=== PATIENT | female | born 1960 | race Caucasian/White ===

== ENCOUNTER 2020-12-16 09:09 | Emergency (ER) | payer OTHER, SELFPAY ==
--- NOTE | 2020-12-16 09:12 | ED.URI ---
HPI - URI/Sore Throat General Chief Complaint: Upper Respiratory Infection Stated Complaint: Swollen gland with facial pain Time Seen by Provider: 12/16/20 09:12 Source: patient and RN notes reviewed History of Present Illness HPI Narrative: Patient is a 60-year-old female who presents the urgent care with complaints of facial pain and swelling glands on the left. Patient states that it started 2 days ago and was very painful yesterday. States that the pain increased when eating. States that it feels much better today with a lot of decrease in the swelling. Denies of any fevers or sore throat. No other acute complaints. No acute distress noted. Patient aware of the plan of care. Some parts of this dictation were generated by voice recognition software and may contain typographical and/or grammatical inaccuracies. Related Data Home Medications Medication Instructions Recorded Confirmed escitalopram oxalate 30 mg PO DAILY 12/16/20 12/16/20 levothyroxine 75 mcg PO DAILY 12/16/20 12/16/20 Allergies Allergy/AdvReac Type Severity Reaction Status Date / Time erythromycin base Allergy Vomiting Verified 12/16/20 09:27 Review of Systems Review of Systems: CONSTITUTIONAL: Denies fever, chills, or sweats. EYES: Denies visual changes, redness, or discharge. ENT: Denies rhinorrhea, congestion, sore throat, or otalgia. Reports of left swelling glands and facial pain CARDIOVASCULAR: Denies chest pain, palpitations, or edema. RESPIRATORY: Denies cough or dyspnea. GASTROINTESTINAL: Denies abdominal pain, nausea, vomiting, or diarrhea. GENITOURINARY: Denies dysuria or hematuria. SKIN: Denies rash or itching. MUSCULOSKELETAL: Denies back pain, joint pain, or myalgia. NEUROLOGIC: Denies headache, numbness, or weakness. All other systems reviewed are negative, except as documented in HPI. PMFSH Comments At the time of my signature, I reviewed and agree with the nursing past medical, surgical, social, and family history. There is no relevant family history pertinent to the patient complaint. Exam Narrative: GENERAL: This is a well-nourished, well-developed patient, in no apparent distress. HEAD: normocephalic, atraumatic. EYES: PERRL. Sclera clear/white. Vision is grossly intact. EARS: External ears normal, auditory canals clear and without drainage, TMs normal without perforation. Hearing grossly intact. NOSE: External nose normal with no obvious nasal discharge, nares without redness, no rhinorrhea. THROAT: Mucous membranes moist, posterior pharynx clear. NECK: Neck supple, mild left submandibular sialadenitis CARDIOVASCULAR: Regular rate and rhythm without murmurs, gallops, or rubs. RESPIRATORY: Clear to auscultation. Breath sounds equal bilaterally. No wheezes, rales, or rhonchi. SKIN: warm, intact with no suspicious lesions or rash, good texture and turgor. NEURO: awake, alert, and oriented to person, place and time. There were no obvious focal neurologic abnormalities. EXTREMITIES: No clubbing, cyanosis, or edema. Course Vital Signs Vital signs: Vital Signs Temperature 99.5 F 12/16/20 09:18 Pulse Rate 68 12/16/20 09:18 Respiratory Rate 20 12/16/20 09:18 Blood Pressure 127/68 12/16/20 09:18 Pulse Oximetry 97 12/16/20 09:18 Temperature 99.5 F 12/16/20 09:18 Pulse Rate 68 12/16/20 09:18 Respiratory Rate 20 12/16/20 09:18 Blood Pressure 127/68 12/16/20 09:18 Pulse Oximetry 97 12/16/20 09:18 Reviewed MDM - URI/Sore Throat MDM Narrative Medical decision making narrative: Advised the patient to suck on hard sour candies to allow for drainage of the salivary gland. May also use a warm compress and light massage. Increase your water intake. If you develop any increase in swelling associated with difficulty swallowing or severe pain and fever?go to the emergency room. Most of the time these issues resolve on their own with at home remedies. Follow-up with your PCP within 2 to 5 days or for
[2020-12-16 09:18] VITALS: BP 127/68; PULSE 68; RESP 20; TEMP 37.5; O2SAT 97
== END 2020-12-16 09:33 | disposition home or self-care (01) ==
PROVIDERS: Emergency Provider Nurse Practitioner Family
DX: K11.20 Sialoadenitis, unspecified (principal)
CPT/HCPCS: 99211; 99213; G0463